=== PATIENT | male | born 1965 | race African-American/Black ===

== ENCOUNTER 2019-05-01 17:15 | Emergency (ER) | payer MEDICAID, OTHER ==
[~2019-05-01] VITALS: Ht 180.3 cm; Wt 68.0 kg
[2019-05-01] MEDS ORDERED: KETOROLAC TROMETH 60MG/2ML VIAL IM ONE (21:15)
[2019-05-01] MEDS ORDERED: methylPREDNISolone SOD SUCC 125 MG/2 ML VL IM ONE (21:15)
[2019-05-01 22:50] VITALS: BP 129/72
== END 2019-05-01 23:06 | disposition home or self-care (01) ==
LOC: EDBD 17:15 → ER 17:18
DX: S33.5XXA Sprain of ligaments of lumbar spine, initial encounter (principal); S42.401A Unspecified fracture of lower end of right humerus, initial encounter for closed fracture; S73.101A Unspecified sprain of right hip, initial encounter; S09.8XXA Other specified injuries of head, initial encounter; M54.2 Cervicalgia; W01.0XXA Fall on same level from slipping, tripping and stumbling without subsequent striking against object, initial encounter; Y93.89 Activity, other specified; Y92.89 Other specified places as the place of occurrence of the external cause; Y99.8 Other external cause status
CPT/HCPCS: 70450; 72040; 72100; 73030; 73502; 96372; 99284; J1885; J2930